=== PATIENT | male | born 1955 | race Caucasian/White ===

== ENCOUNTER 2018-03-21 11:57 | Day surgery (SDC) | payer OTHER ==
[~2018-03-21] VITALS: Ht 185.4 cm; Wt 127.0 kg
[~2018-03-21 11:57] MED LIST: ALEVE220 M1 PO
--- NOTE | 2018-03-21 13:43 | NUR ---
03/21/18 1343 Tamera Gonzalez 1340-PATIENT ARRIVED TO PACU ON 3L NC WEANED TO 2L NC O2 SAT 97% PATIENT AWAKE DENIES PAIN OR NAUSEA. ABDOMEN SOFT. ENCOURAGED TO PASS FLATUS.
--- NOTE | 2018-03-23 10:08 | OR ---
[facility] [address], [place] [address] Signed DATE OF OPERATION: 03/21/2018 SURGEON: Abigail Montes De Oca MD PREOPERATIVE DIAGNOSIS: History of tubular adenoma, 2014. POSTOPERATIVE DIAGNOSIS: Small flat adenomatous polyp at 90 cm (excised). PROCEDURE: Total colonoscopy to cecum with cold morcellation polypectomy x1. ANESTHESIA: Intravenous sedation, fentanyl 100 mcg, Versed 9 mg. INDICATION: This 63-year-old white man is a patient of Dr. Angelo Daigle. He has undergone colonoscopy in 2014, at which point he was found to have a tubular adenoma. Notably, a family history of colon cancer in his father. He is admitted at this time to undergo surveillance colonoscopy. He understand the risks of bleeding, infection, and perforation. FINDINGS: The prep was good. Complete colonoscopy was undertaken to the cecum without question. There was one small flat polyp that was rather subtle, but well visualized with narrow band imaging technology. This was at 90 cm and was excised completely using cold morcellation technique. The remaining colon and rectum were normal. DESCRIPTION OF PROCEDURE: The patient was brought to the endoscopy suite and placed in lateral decubitus position given intravenous sedation to the point of slurred speech and nystagmus. Digital rectal examination was normal. An Olympus video colonoscope was passed in the rectum and manipulated throughout the colon ultimately intubating the cecum itself. The ileocecal valve and appendiceal orifice were normal. The scope was withdrawn from that point and examination throughout undertaken showing no sign of abnormality until about 90 cm from the anal verge where a subtle but real flat polyp was noted. It was certainly less than a cm in size. Narrow band imaging was used to better define it confirming the high probability of adenomatous Electronically Signed By: ABIGAIL MONTES DE OCA MD 03/23/18 1008 PATIENT NAME: ASHLEY ESPOSITO JR OPERATIVE REPORT DATE OF : 57 REPORT #: [id number] PHYSICIAN: ABIGAIL MONTES DE OCA MD PCP: Angelo Daigle DO REPORT IS CONFIDENTIAL AND NOT TO BE RELEASED WITHOUT AUTHORIZATION [facility] [address], [place] [address] Signed change. The lesion was completely excised with cold morcellation technique with multiple bites. Photographs were additionally taken. The scope was withdrawn from that point and examination throughout showed no sign of other abnormality. Retroflexed view of the rectum was normal as well. The scope was removed and the patient was taken to recovery room in good condition. CONCLUDING DIAGNOSIS: Probable adenoma at 90 cm, completely excised. PLAN: Recommend repeat colonoscopy in 3 years or sooner if clinically indicated for surveillance. He will return to the ongoing care of Dr. Daigle. MD STACY Mansfield/BELLA /[id number] cc: Angelo Daigle DO Copies: Angelo Daigle DO ~ Electronically Signed By: ABIGAIL MONTES DE OCA MD 03/23/18 1008 PATIENT NAME: ASHLEY ESPOSITO JR GALEN OPERATIVE REPORT DATE OF : 57 REPORT #: [id number] PHYSICIAN: ABIGAIL MONTES DE OCA MD PCP: Angelo Daigle DO REPORT IS CONFIDENTIAL AND NOT TO BE RELEASED WITHOUT AUTHORIZATION
== END 2018-03-21 14:33 | disposition home or self-care (01) ==
LOC: OPS 11:57 → DS 11:57 → OPS 13:00
PROVIDERS: Surgery
PROC: 0DBL8ZX Excision of Transverse Colon, Via Natural or Artificial Opening Endoscopic, Diagnostic (ICD-10-PCS; principal; 2018-03-21 13:00)
DX: Z12.11 Encounter for screening for malignant neoplasm of colon (principal); D12.3 Benign neoplasm of transverse colon; K43.9 Ventral hernia without obstruction or gangrene; Z86.010 Personal history of colon polyps; Z80.0 Family history of malignant neoplasm of digestive organs
CPT/HCPCS: 99153; G0500; J0694; J2250; J3010; J7120

== ENCOUNTER 2024-08-19 11:59 | Day surgery (SDC) | payer MEDICARE, OTHER ==
[~2024-08-19] VITALS: Ht 185.4 cm; Wt 125.0 kg
[~2024-08-19 11:59] MED LIST changes: +IBLOOD GLUCOSE TEST STRIP 1 EA TEST VI PRN; +LACTATED RINGER'S 1,000 ML IV SCH; +LIDOCAINE HCL 1% 5 ML SDV INJ ONE; +MIDAZOLAM HCL 5 MG/5 ML VIAL IV PRN; +fentaNYL citrate 100 MCG/2 ML VIAL IV PRN
[2024-08-19 12:18] VITALS: BP 139/78
[2024-08-19] MEDS ORDERED: ELIQUIS5 MG PO (12:23)
[2024-08-19] MEDS ORDERED: MULTI VITAMIN1 EACH PO (12:23)
[2024-08-19] MEDS ORDERED: LISINOPRIL-HCT1 EAC2 PO (12:23)
[2024-08-19] MEDS ORDERED: CEFAZOLIN SODIUM 3 GM/30 ML SYR IV SCH (12:42)
[2024-08-19] MEDS ORDERED: MIDAZOLAM HCL 5 MG/5 ML VIAL ONE (13:00)
[2024-08-19] MEDS ORDERED: fentaNYL citrate 100 MCG/2 ML VIAL ONE (13:00)
--- NOTE | 2024-08-19 14:44 | NUR ---
08/19/24 1444 Ying Miller 1429- PT ARRIVES TO THE PACU WITH A NATURAL AIRWAY AND LOOKING AROUND PACU. PT IS ORIENTED TO PACU. PT DENIES PAIN AND NAUSEA. PT IS ON 3L OF O2 VIA NC. ALL MONITORS PUT IN PLACE. VSS. PT IS ENCOURAGED TO PASS GAS. PT REPORTS FEELING "GROGGY". LR INFUSING IN R FOREARM. PLAN OF CARE DISCUSSED. NO QUESTIONS OR CONCERNS. PT ABDOMEN IS SOFT AND NON DISTENDED. 1440-PT IS RESTING IN THE STRETCHER WITH NO APPARENT DISTRESS. WILL CONTINUE TO MONITOR. PT OPENS EYES EASILY TO VERBAL STIMULI. 1442- PT O2 SATS ARE ABOVE 95%. O2 TURNED OFF AND REMOVED. PT TALKING WITH RN. PT IS ENCOURAGED TO PASS GAS.
[2024-08-19 15:16] VITALS: BP 122/84
--- NOTE | 2024-08-21 13:15 | OR ---
[facility] [address], [place] [address] Signed DATE OF OPERATION: 08/19/2024 SURGEON: Abigail Montes De Oca MD PREOPERATIVE DIAGNOSIS: Family history of colon cancer (father and history of polyps 2018). POSTOPERATIVE DIAGNOSES: 1. 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 Multiple polyps (x7). PROCEDURES: 1. Total colonoscopy to cecum with mucosal and MORCELLATION core biopsy of cecal neoplasm. 2. Snare polypectomy x3, cold morcellation polypectomy x4. ANESTHESIA: Intravenous sedation, fentanyl 100 mcg and Versed 9 mg. INDICATION: This 69-year-old white man is patient of Dr. Daigle in [place], [place]. He last underwent colonoscopy in 2018 where he was found to have a tubular adenoma. He has diarrhea alternating with constipation, but no blood per rectum. He does also have a family history of colon cancer in his father who developed the disease late in life. He is admitted at this time to undergo colonoscopy. He understands the risk of bleeding, infection, and perforation. FINDINGS: The prep was quite good. Complete colonoscopy was undertaken of the cecum. Within the cecum was a rounded smooth submucosal mass. It was much more firm than the usual lipomatous mass, but the mucosa was disrupted and core biopsies undertaken. Most likely this represents a lipoma possibly of a carcinoid tumor and other types of lesions remains to be dis-proven. There were seven polyps throughout the colon, also excised concurrently by a combination of snare and cold morcellation polypectomy techniques. DESCRIPTION OF PROCEDURE: The patient was brought to the endoscopy suite and placed in lateral decubitus position, given intravenous sedation to the point of slurred speech and nystagmus with full cardiopulmonary monitoring. Digital rectal examination was normal. Electronically Signed By: ABIGAIL MONTES DE OCA MD 08/21/24 1315 PATIENT NAME: ASHLEY ESPOSITO JR OPERATIVE REPORT DATE OF : 57 REPORT #: [id number] PHYSICIAN: ABIGAIL MONTES DE OCA MD PCP: Angelo Daigle DO REPORT IS CONFIDENTIAL AND NOT TO BE RELEASED WITHOUT AUTHORIZATION [facility] [address], [place] [address] Signed An Olympus video colonoscope was passed in the rectum and manipulated throughout the colon ultimately intubating the cecum. Within the cecum was a relatively large, I would say 2 cm mass that was smooth on the mucosal surface, but which had a somewhat flat polypoid lesion. The mass was interrogated with the biopsy device, was not smooth and pillow-like as most submucosal lipomas are. On that basis, concern was maintained for possible carcinoid tumor, though that is certainly not certain. There appeared to be a polypoid mucosal surface at some point and this was excised and passed as a polyp and the site was repeatedly morcellated, ultimately going through the mucosa into the submucosa and ultimately into the core of the lesion. At this point, extrusion of soft tissue suggestive of polyp or perhaps neoplastic tissue was noted. This was multiply biopsied and passed for Pathology. Hemostasis was quite good. The scope was then withdrawn and a small polyp was noted in the mid ascending colon which was excised with cold snare technique. Further withdrawal showed a polyp of the left colon, excised with cold morcellation technique and two small polyps of the sigmoid and excised with cold snare technique and we had another in the rectosigmoid with cold morcellation technique. In aggregate seven polyps were excised, three by snare technique, four by morcellation technique. This was independent of the submucosal lesion of the cecum. Scope was then removed. The patient was taken to the recovery room in good condition. CONCLUDING DIAGNOSES: 1. Nodule of cecum, probably most consistent with submucosal lipoma. Good biopsies of the core were undertaken to assure there is no sign of carcinoid tumor. 2. Multiple polyps. PLAN: Recommend repeat colonoscopy in three years, sooner if symptoms should develop. He will return to the ongoing care of Dr. Daigle. MD STACY Mansfield/MODL /[id number] cc: Dr. Daigle Electronically Signed By: ABIGAIL MONTES DE OCA MD 08/21/24 1315 PATIENT NAME: ASHLEY ESPOSITO JR OPERATIVE REPORT DATE OF : 57 REPORT #: [id number] PHYSICIAN: ABIGAIL MONTES DE OCA MD PCP: Angelo Daigle DO REPORT IS CONFIDENTIAL AND NOT TO BE RELEASED WITHOUT AUTHORIZATION [facility] [address] [facility] [place] [address] Signed Copies: ~ Electronically Signed By: ABIGAIL MONTES DE OCA MD 08/21/24 1315 PATIENT NAME: ASHLEY ESPOSITO JR OPERATIVE REPORT DATE OF : 57 REPORT #: [id number] PHYSICIAN: ABIGAIL MONTES DE OCA MD PCP: Angelo Daigle DO REPORT IS CONFIDENTIAL AND NOT TO BE RELEASED WITHOUT AUTHORIZATION
--- NOTE | 2024-08-22 17:04 | PATH ---
[facility] [address] [facility] [place], [place] [address] Signed SPECIMEN(S): A DESCENDING COLON POLYP SPECIMEN(S): B ASCENDING COLON POLYP SPECIMEN(S): C CECUM COLON BIOPSY SPECIMEN(S): D CECUM COLON BIOPSY SPECIMEN(S): E CECUM COLON BIOPSY SPECIMEN(S): F SIGMOID POLYP SPECIMEN(S): G SIGMOID POLYP SPECIMEN(S): H SIGMOID POLYP SPECIMEN SOURCE: A. DESCENDING COLON POLYP B. ASCENDING COLON POLYP C. CECUM COLON BIOPSY D. CECUM COLON BIOPSY E. CECUM COLON BIOPSY F. SIGMOID POLYP G. SIGMOID POLYP H. SIGMOID POLYP CLINICAL HISTORY: History of polyps, family history of colon CA, diarrhea/constipation. Post: Polyp prob cecal lymphoma. FINAL PATHOLOGIC DIAGNOSIS: A. Descending colon, polypectomy: - Tubular adenoma. - Negative for high-grade dysplasia or malignancy. B. Ascending colon, polypectomy: - Tubular adenoma. - Negative for high-grade dysplasia or malignancy. C. Cecum, biopsies: - Fragments of superficial colonic mucosa with no significant histopathological changes. - Negative for colitis, dysplasia, or malignancy. D. Cecum, biopsies: - Fragments of superficial colonic mucosa with a small lymphoid aggregate. - Negative for colitis, dysplasia or malignancy. - See comment below. E. Cecum, biopsies: - Predominantly mucinous debris and blood. - A few fragmented colonic glandular elements are present. PATIENT NAME: GLORIA ESPOSITO JRGe AARON PATHOLOGY DATE OF : 57 REPORT #: [id number] PHYSICIAN: NACHO PALOMINO PCP: Angelo Daigle DO REPORT IS CONFIDENTIAL AND NOT TO BE RELEASED WITHOUT AUTHORIZATION [facility] [address] [place], [place] [address] Signed - Negative for active inflammation, dysplasia, or malignancy. F. Sigmoid colon, polypectomy: - Tubular adenoma. - Negative for high-grade dysplasia or malignancy. G. Sigmoid colon, polypectomy: - Tubular adenoma (two fragments). - Negative for high-grade dysplasia or malignancy. H. Sigmoid colon, polypectomy: - Colonic mucosa with superficial hyperplastic change. - Negative for dysplasia or malignancy. 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 The cecal biopsies (parts C, d, and E) are superficial and fragmented with little to no underlying submucosa available for evaluation. There is a small aggregate of lymphoid tissue on part D that show a reactive pattern by IHC (CD3+, CD20-, and BCL2-). If concern persists, additional deeper biopies are recommended. DWS:cml MICROSCOPIC EXAMINATION: Histologic sections of all submitted blocks are examined by light microscopy. These findings, together with the gross examination, support the pathologic diagnosis. GROSS DESCRIPTION: A. The specimen, labeled and designated "Sheela, R, descending colon polyp," is received in formalin and consists of three willoughby soft tissue fragments, ranging from 0.2-0.4 cm. Entirely submitted in (A1). B. The specimen, labeled and designated "Sheela, R, ascending colon polyp," is received in formalin and consists of one willoughby soft tissue fragment, 0.4 cm. Entirely submitted in (B1). C. The specimen, labeled and designated "Sheela, R, cecum colon biopsy," is received in formalin and consists of one willoughby soft tissue fragment, 0.2 cm. Entirely submitted in (C1). D. The specimen, labeled and designated "Sheela, R, cecum colon biopsy #2," is received in formalin and consists of four willoughby soft tissue fragments, ranging from 0.3-0.4 cm. Entirely submitted in (D1). E. The specimen, labeled and designated "Sohail Esposito, cecum colon biopsy #3," is received in formalin and consists of four willoughby soft tissue fragments, ranging PATIENT NAME: ASHLEY ESPOSITO JR PATHOLOGY DATE OF : 57 REPORT #: [id number] PHYSICIAN: NACHO PALOMINO PCP: Angelo Daigle DO REPORT IS CONFIDENTIAL AND NOT TO BE RELEASED WITHOUT AUTHORIZATION [facility] [address] [place], [place] [address] Signed from 0.3-0.5 cm. Entirely submitted in (E1). F. The specimen, labeled and designated "Sohail Esposito, sigmoid polyp," is received in formalin and consists of one willoughby soft tissue fragment, 1.5 cm. Entirely submitted in (F1). G. The specimen, labeled and designated "Sohail Esposito, sigmoid polyp #2," is received in formalin and consists of two willoughby soft tissue fragments, ranging from 0.4-0.5 cm. Entirely submitted in (G1). H. The specimen, labeled and designated "Sohail Esposito, sigmoid polyp #3," is received in formalin and consists of four willoughby soft tissue fragments, ranging from 0.2-0.4 cm. Entirely submitted in (H1). AB (under the direct supervision of a pathologist) The Gross Description was prepared using a voice recognition system. The report was reviewed for accuracy; however, sound-alike word errors, addition and/or deletions may occur. If there is any question about this report, please contact Client Services. PERFORMING LABORATORY: Technical component was performed by [facility], [address] [place] [id number] (CLIA# [id number]). Professional interpretation was performed by [facility], [address] [place] [id number] (CLIA#: [id number]). Diagnostician: Luis Fernando Villatoro MD Pathologist Electronically Signed 08/22/2024 Copies: ~ PATIENT NAME: ASHLEY ESPOSITO JR PATHOLOGY DATE OF : 57 REPORT #: [id number] PHYSICIAN: NACHO PALOMINO PCP: Angelo Daigle DO REPORT IS CONFIDENTIAL AND NOT TO BE RELEASED WITHOUT AUTHORIZATION
== END 2024-08-19 15:29 | disposition home or self-care (01) ==
LOC: DS 11:59
PROVIDERS: ATTEND Surgery
PROC: 0DBN8ZZ Excision of Sigmoid Colon, Via Natural or Artificial Opening Endoscopic (ICD-10-PCS; 2024-08-19)
PROC: 0DBF8ZZ Excision of Right Large Intestine, Via Natural or Artificial Opening Endoscopic (ICD-10-PCS; 2024-08-19)
PROC: 0DBG8ZZ Excision of Left Large Intestine, Via Natural or Artificial Opening Endoscopic (ICD-10-PCS; 2024-08-19)
PROC: 0DBH8ZZ Excision of Cecum, Via Natural or Artificial Opening Endoscopic (ICD-10-PCS; principal; 2024-08-19 13:00)
DX: D12.2 Benign neoplasm of ascending colon (principal); D12.4 Benign neoplasm of descending colon; D12.5 Benign neoplasm of sigmoid colon; D17.5 Benign lipomatous neoplasm of intra-abdominal organs; K63.5 Polyp of colon; I10 Essential (primary) hypertension; Z80.0 Family history of malignant neoplasm of digestive organs; Z86.711 Personal history of pulmonary embolism; Z86.0109 Personal history of other colon polyps
CPT/HCPCS: 88305; 88341; 88342; 99153; G0500; J0690; J2250; J3010; J7121